=== PATIENT | male | born 1970 | race Caucasian/White ===

== ENCOUNTER 2020-01-02 13:36 | Outpatient (CLI) | payer OTHER, SELFPAY ==
--- NOTE | 2020-01-02 13:44 | XR_ITS ---
WS: [id number] Chest 2 views, 01/02/2020 Clinical Data: REGULATED PROGRAM MONITORING Comparison: PA and lateral chest, 01/02/2019. Findings: No nodules, masses or effusions are seen. The heart is normal. The pulmonary vascularity is not increased. No pneumonia or pneumothorax is seen. XR/XR chest 2V* [id number] Impression: Negative chest.
== END 2020-01-02 13:37 | disposition home or self-care (01) ==
PROVIDERS: Visit Provider Preventive Medicine Occupational Medicine
DX: Z13.6 Encounter for screening for cardiovascular disorders (principal)
CPT/HCPCS: 71046

== ENCOUNTER 2020-01-31 09:06 | Emergency (ER) | payer SELFPAY ==
[2020-01-31 09:16] VITALS: BP 143/91; PULSE 82; RESP 20; TEMP 36.8; O2SAT 97; BMI 33.7
--- NOTE | 2020-01-31 09:26 | XR_ITS ---
WS: [id number] Portable AP upright chest, 01/31/2020 Clinical Data: cp Comparison: PA and lateral chest, 01/02/2020. Findings: No nodules, masses or effusions are seen. The heart is normal. The pulmonary vascularity is not increased. No pneumonia or pneumothorax is seen. Monitor leads on the chest wall. XR/XR chest 1V portable [id number] Impression: Negative chest.
--- NOTE | 2020-01-31 09:26 | ECG_ITS ---
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 Measurements Intervals [place] Rate: 82 P: 31 SC: 130 QRS: -2 QRSD: 86 T: 44 QT: 340 QTc: 398 Interpretive Statements SINUS RHYTHM POSSIBLE RIGHT VENTRICULAR CONDUCTION DELAY [RSR (QR) IN V1/V2] Compared to ECG 07/14/2015 09:57:43 No significant changes Electronically Signed On 01-31-2020 13:28:53 CDT by Gerard Messina M.D. [id number]
--- NOTE | 2020-01-31 09:31 | ED_ITS ---
HPI - Chest Pain General: Chief Complaint: Chest Pain Stated Complaint: CP Time Seen by Provider: 01/31/20 09:17 History of Present Illness: HPI narrative: Patient arise with the complaints of sharp pain in his chest earlier this morning. Says he has no cardiac history. Said he has had pain off and on his chest the last few days. Denies any exertional dyspnea denies any pressure in his chest diaphoresis or nausea and vomiting. Said his arms felt heavy today while he is at work. Said the pain in that he had was sharp left lateral chest area MD complaint: chest pain Onset (ago): day(s) Timing of current episode: episodic Prior episodes: Yes Onset: during exertion Pain location: left chest and lateral Severity: mild Quality: sharp Relieving factors: nothing Exacerbating factors: nothing Associated symptoms: Reports no associated symptoms; Deny abdominal pain, dyspnea, fever(s), nausea or vomiting Review of Systems Const: Denies: fever(s), chills or body aches Eyes: Denies: change in vision or blurry vision ENMT: Denies: throat pain or nasal congestion Card: Reports: chest pain; Denies: dyspnea on exertion Resp: Denies: dyspnea, productive cough or non-productive cough GI: Denies: abdominal pain, nausea or vomiting : Denies: difficulty urinating Musc: Denies: extremity pain Skin/Breast: Denies: rash Neuro: Denies: headache(s) Psych: Denies: anxiety or depression Farzad/Lymph: Denies: easy bruising Physical Exam Narrative: EXAM NARRATIVE: Obese Const: COMMON NORMALS: no acute distress, average body habitus and patient oriented x3 HENMT: COMMON NORMALS: normocephalic HEAD & SCALP: normal to inspection and normocephalic FACE & SINUS: normal facial exam Eye: COMMON NORMALS: conjunctivae normal GENERAL EYE: appearance normal, both eyes and all related structures CONJUNCTIVA: Yes conjunctivae normal Neck/C-Spine: COMMON NORMALS: no JVD Chest: COMMONS NORMALS: normal inspection of the chest Resp: COMMON NORMALS: normal respiratory effort and clear to auscultation bilaterally AUSCULTATION: clear to auscultation bilaterally Cardio: COMMON NORMALS: no JVD, regular rate and regular rhythm RATE: regular rate RHYTHM: regular rhythm GI: COMMON NORMALS: Normal to inspection, nondistended, normoactive bowel sounds present Extremity: COMMON NORMALS: normal to inspection and full ROM Neuro: COMMON NORMALS: patient oriented x3 Course Vital Signs: Vital signs: Vital Signs Temperature 98.3 F 01/31/20 09:16 Pulse Rate 82 01/31/20 09:16 Respiratory Rate 20 H 01/31/20 09:16 Blood Pressure 143/91 01/31/20 09:16 Pulse Oximetry 97 01/31/20 09:16 Coding Level of Care Code ED Marketing Information Analyst for Mandi Rondon
[2020-01-31 09:36] VITALS: BP 126/83; PULSE 59; RESP 20; O2SAT 96
--- NOTE | 2020-01-31 09:40 | PC.NURSE ---
N/V yesterday. WOrks in a factory and sweats daily, which is a normal for him.
[2020-01-31 09:44] LABS: Basophils % 0.4 %; Eosinophils # 0.3 10^3/uL (0.0-0.8); Eosinophils % 2.5 %; Hematocrit 40.3 % (42.0-52.0); Lymphocytes # 2.6 10^3/uL (0.8-4.8); Lymphocytes % 24.3 %; Mean Corpuscular HGB Conc 32.3 g/dL (30.0-36.0); Mean Corpuscular Volume 89.8 fL (80-94); Mean Platelet Volume 9.9 fL (7.4-10.4); Monocytes # 0.8 10^3/uL (0.2-0.9); Monocytes % 7.5 %; Neutrophils % 64.4 %; Nucleated Red Blood Cells % 0 %; Platelet Count 251 10^3/cmm (130-400); Red Blood Count 4.49 10^6/uL (4.1-5.3); Red Cell Distribution Width 13.6 % (12.1-15.1); White Blood Count 10.7 10^3/uL (4.0-10.0)
[2020-01-31 10:02] LABS: Alanine Aminotransferase 18 U/L (0-41); Albumin Level 3.9 g/dL (3.5-5.2); Alkaline Phosphatase 98 IU/L (40-130); Anion Gap 14.2 (5-19); Aspartate Amino Transferase 15 U/L (0-40); Blood Urea Nitrogen 17 mg/dL (6-20); Calcium 9.7 mg/dL (8.5-10.5); Carbon Dioxide 24 mmol/L (22-29); Chloride 104 mmol/L (98-107); Globulin 3.1 g/dL (1.3-4.6); Glomerular Filtration Rate 71.8 mL/min (90-130); Glucose 105 mg/dL (65-115); Osmolality Calculated 283 mOsm/kg (285-295); Potassium 4.2 mmol/L (3.5-5.1); Sodium 138 mmol/L (136-145); Total Bilirubin 0.2 mg/dL (0.15-1.2)
[2020-01-31 10:03] LABS: Troponin(5th) Baseline 6 ng/L (0-15)
[2020-01-31] MEDS: ondansetron 2 mg/ML SDV 2 mL 4 MG IVP (10:03)
[2020-01-31] MEDS: ketorolac 30 mg/mL INJ IVP (10:03)
[2020-01-31] MEDS: sodium chloride 0.9% 1,000 ML 999 ML IV (10:03)
[2020-01-31 11:25] VITALS: BP 122/79; PULSE 77; RESP 18; O2SAT 99
--- NOTE | 2020-01-31 11:26 | ECG_ITS ---
[facility] Test Date: 2020-01-31 Pat Name: Dillon Peterson Department: Room: Gender: Male Mask Former: : 1970 Requested By: Jarad Brewer Order Number: [id number] Jennie MD: Gerard Messina M.D. Measurements Intervals [place] Rate: 73 P: 114 [place]: 144 QRS: 18 QRSD: 88 T: 77 QT: 380 QTc: 419 Interpretive Statements SINUS RHYTHM LOW QRS VOLTAGE IN EXTREMITY LEADS [QRS DEFLECTION < 0.5 mV IN LIMB LEADS] POSSIBLE RIGHT VENTRICULAR CONDUCTION DELAY [RSR (QR) IN V1/V2] Compared to ECG 01/31/2020 09:16:10 Low QRS voltage now present Electronically Signed On 01-31-2020 14:09:30 CDT by Gerard Messina M.D. [id number]
[2020-01-31 12:30] LABS: Troponin 5 2HR 6.31 ng/L (0-15); Troponin 5 2HR Delta 0.31 ABS# (0-10)
[2020-01-31 12:49] VITALS: BP 139/88; PULSE 63; RESP 18; O2SAT 99
[2020-01-31 13:14] VITALS: BP 114/61; PULSE 65; RESP 18; TEMP 36.3; O2SAT 97
== END 2020-01-31 13:16 | disposition home or self-care (01) ==
PROVIDERS: Emergency Provider Nurse Practitioner Family
DX: R07.9 Chest pain, unspecified (principal)
CPT/HCPCS: 12345; 71045; 80053; 84484; 85025; 85610; 93005; 93010; 96361; 96374; 96375; 99283; 99284; J1885; J2405; J7030

== ENCOUNTER 2022-06-06 10:37 | Outpatient (CLI) | payer OTHER, SELFPAY ==
--- NOTE | 2022-06-06 10:50 | XR_ITS ---
WS: [id number] Exam: XR chest 2V* [id number] Date/Time of Exam: 06/06/2022 10:52 AM Reason For Exam: REGULATED PROGRAM MONITORING Comparison 01/31/2020. The lungs are clear and fully expanded. Normal cardiomediastinal structures. Bony elements are intact . XR/XR chest 2V* [id number] IMPRESSION: 1. No acute cardiopulmonary process.
== END 2022-06-06 10:38 | disposition home or self-care (01) ==
LOC: RAD 07-26 12:32
PROVIDERS: Visit Provider Preventive Medicine Occupational Medicine
DX: Z13.6 Encounter for screening for cardiovascular disorders (principal)
CPT/HCPCS: 71046

== ENCOUNTER 2023-09-29 12:37 | Outpatient (CLI) | payer OTHER, SELFPAY ==
--- NOTE | 2023-09-29 12:41 | XR_ITS ---
WS: [id number] Left knee, 3 views, 09/29/2023 Clinical Data: CHRONIC PAIN OF BOTH KNEES Comparison: None. Findings: No fractures or dislocations are seen. There is medial joint compartment narrowing with spurring of t he medial and lateral femoral condyles and medial tibial plateau. There are small posterior patellar spurs. The soft tissues are unremarkable. Impression: Minimal osteoarthritis of the left knee. Kellgren-Bryan Classification: grade 2 (minimal): definite osteophytes and possible joint space na rrowing
--- NOTE | 2023-09-29 12:41 | XR_ITS ---
WS: [id number] Right knee, 3 views, 09/29/2023 Clinical Data: CHRONIC PAIN OF BOTH KNEES Comparison: Right knee, 10/16/2012 Findings: No fractures or dislocations are seen. There is medial joint compartment narrowing with spurs of the medial femoral condyle, medial tibial plateau and lateral tibial plateau. The patella is intact with a posterior superior spur.. The soft tissues are unremarkable. Impression: Minimal osteoarthritis of the right knee. Kellgren-Bryan Classification: grade 2 (minimal): definite osteophytes and possible joint space na rrowing
== END 2023-09-29 12:38 | disposition home or self-care (01) ==
LOC: RAD 12:37
PROVIDERS: Visit Provider Nurse Practitioner Family
DX: M25.561 Pain in right knee (principal); M25.562 Pain in left knee; G89.29 Other chronic pain; M17.0 Bilateral primary osteoarthritis of knee
CPT/HCPCS: 73562

== ENCOUNTER 2024-04-14 18:11 | Emergency (ER) | payer OTHER, SELFPAY ==
[2024-04-14 18:16] VITALS: BP 150/90; PULSE 81; RESP 17; TEMP 36.8; O2SAT 94; BMI 33.8
[2024-04-14 18:34] LABS: Glucose Point of Care 546 mg/dL (70-110)
[2024-04-14 18:55] LABS: Basophils # 0.1 10^3/uL (0.0-0.1); Basophils % 0.5 %; Eosinophils # 0.2 10^3/uL (0.0-0.8); Eosinophils % 1.9 %; Hematocrit 37.9 % (37-53); Lymphocytes # 2.5 10^3/uL (0.8-4.8); Mean Corpuscular HGB Conc 34.6 g/dL (30-55); Mean Corpuscular Volume 83.8 fl (82-101); Mean Platelet Volume 10.5 fL (7.4-10.4); Monocytes # 0.7 10^3/uL (0.2-0.9); Monocytes % 6.8 %; Neutrophils # 7.34 10^3/uL (1.8-7.7); Neutrophils % 67.4 %; Nucleated Red Blood Cells % 0 %; Platelet Count 229 10^3/cmm (157-399); Red Blood Count 4.52 10^6/uL (3.85-5.65); Red Cell Distribution Width 12.9 % (12.1-15.1); White Blood Count 10.89 10^3/uL (3.29-11.43)
--- NOTE | 2024-04-14 18:57 | ED_ITS ---
HPI - General Adult 2 General: Chief complaint: General Medical Stated complaint: High blood sugar sent by Time Seen by Provider: 04/14/24 18:20 History of Present Illness: 53-year-old male patient without a signi ficant past medical history. He presents because he has had symptoms for the last few days of generalized blurry vision, frequent urination, dry mouth, polydipsia etc. He was found in urgent care to have a blood sugar in the 430s, and sent here. He has not been vomiting. No fever. No recent illness. Related Data Home Medications Medication Instructions Recorded Confirmed simvastatin 20 mg tablet mg PO 07/07/23 07/07/23 Previous Rx's Medication Instructions Recorded azithromycin 500 mg tablet 500 mg PO DAILY 5 days #5 tabs 07/07/23 (Zithromax) blood-glucose meter #1 ea 04/14/24 glipizide 10 mg tablet 10 mg PO DAILY #30 tabs 04/14/24 metformin 500 mg tablet 500 mg PO BID #60 tabs 04/14/24 Allergies Allergy/AdvReac Type Severity Reaction Status Date / Time No Known Allergies Allergy Verified 07/07/23 14:32 Physical Exam 2 Const: COMMON NORMALS: no acute distress GENERAL APPEARANCE: cooperative; not ill appearing and not frail appearing HENMT: COMMON NORMALS: normocephalic, atraumatic and Normal external nose present HEAD & SCALP: normocephalic and atraumatic FACE & SINUS: normal facial exam and face symmetric NOSE: Normal external nose present Eye: COMMON NORMALS: Equal, round and reactive pupils present and EOMs intact bilaterally PUPIL: Yes Equal, round and reactive pupils present Neck/C-Spine: GENERAL: Yes trachea midline Chest: CHEST: Yes Symmetrical chest wall rise Resp: COMMON NORMALS: normal respiratory effort, No retractions, No use of accessory muscles and clear to auscultation bilaterally AUSCULTATION: clear to auscultation bilaterally Cardio: COMMON NORMALS: regular rate and regular rhythm RATE: regular rate RHYTHM: regular rhythm GI: COMMON NORMALS: Normal to inspection, nondistended, normoactive bowel sounds present Extremity: COMMON NORMALS: no pedal edema Neuro: SHELLY COMA SCALE: document GCS findings [place] coma scale eye opening: Spontaneous Shelly coma scale verbal response: Orientated [place] coma scale motor response: Obey commands [place] coma scale total score: 15 S ENSORY EXAM: Yes extremities (intact) Psych: COMMON NORMALS: speech normal SPEECH: Yes normal speech Skin: COMMON NORMALS: no rashes or lesions noted GENERAL SKIN EXAM: no rashes or lesions noted Course 2 Vital Signs: Vital signs: Vital Signs Temperature 98.2 F 04/14/24 18:16 Pulse Rate 89 04/14/24 21:14 Respiratory Rate 18 04/14/24 21:14 Blood Pressure 138/86 04/14/24 21:14 Pulse Oximetry 97 04/14/24 21:14 Oxygen Delivery Me thod Room Air 04/14/24 18:16 MDM - General Adult Medical Decision Making The patient is not tachycardic. He does have a blood sugar of 500 here, but does not appear unwell. Laboratory reveals a sugar of 523, pseudohyponatremia of 125. Potassium is normal. He is given 10 units of insulin here and a liter of fluid, sugars down in the 300s now. Urinalysis is essentially not remarkable. Lipase is normal. His hemoglobin A1c is 11% did noting he has been hyperglycemic for quite some time. He will be started on metformin as an outpatient as well as glipizide. Close outpatient follow-up. Lab Data 04/14/24 18:47 04/14/24 18:47 Laboratory Results WBC 10.89 10^3/uL (3.29-11.43) 04/14/24 18:47 RBC 4.52 10^6/uL (3.85-5.65) 04/14/24 18:47 Hgb 13.10 g/dL (11.27-16.99) 04/14/24 18:47 Hct 37.9 % (37-53) 04/14/24 18:47 MCV 83.8 fl (82-101) 04/14/24 18:47 MCH 29.0 pg (27-33) 04/14/24 18:47 MCHC 34.6 g/dL (30-55) 04/14/24 18:47 RDW 12.9 % (12.1-15.1) 04/14/24 18:47 Plt Count 229 10^3/cmm (157-399) 04/14/24 18:47 MPV 10.5 fL (7.4-10.4) H 04/14/24 18:47 Neut % (Auto) 67.4 % 04/14/24 18:47 Lymph % (Auto) 23.0 % 04/14/24 18:47 [place] % (Auto) 6.8 % 04/14/24 18:47 Eos % (Auto) 1.9 % 04/14/24 18:47 Baso % (Auto) 0.5 % 04/14/24 18:47 Neut # (Auto) 7.34 10^3/uL (1.8-7.7) 04/14/24 18:47 Lymph # (Auto) 2.5 10^3/uL (0.8-4.8) 04/14/24 18:47 [place] # (Auto) 0.7 10^3/uL (0.2-0.9) 04/14/24 18:47 Eos # (Auto) 0.2 10^3/uL (0.0-0.8) 04/14/24 18:47 Baso # (Auto) 0.1 10^3/uL (0.0-0.1) 04/14/24 18:47 Nucleated RBC % (auto) 0 % 04/14/24 18:47 Nucleated RBCs # 0.0 /100WBC 04/14/24 18:47 Sodium 125 mmol/L (136-145) L 04/14/24 18:47 Potassium 4.2 mmol/L (3.5-5.1) 04/14/24 18:47 Chloride 92 mmol/L (98-107) L 04/14/24 18:47 Carbon Dioxide 24 mmol/L (22-29) 04/14/24 18:47 Anion Gap 13.2 (5-19) 04/14/24 18:47 BUN 15 mg/dL (6-20) 04/14/24 18:47 Creatinine 1.0 mg/dL (0.7-1.2) 04/14/24 18:47 GFR Calculation 78.8 mL/min (90-130) L 04/14/24 18:47 Glucose 523 mg/dL (65-115) H* 04/14/24 18:47 POC Glucose 309 mg/dL (70-110) H 04/14/24 20:39 Estimat Average Glucose 269 04/14/24 18:47 Hemoglobin A1c 11.0 % (4.0-6.0) H 04/14/24 18:47 Calculated Osmolality 284 mOsm/kg (285-295) L 04/14/24 18:47 Calcium 8.9 mg/dL (8.5-10.5) 04/14/24 18:47 Magnesium 1.9 mg/dL (1.7-2.3) 04/14/24 18:47 Total Bilirubin 0.4 mg/dL (0.15-1.2) 04/14/24 18:47 AST 13 U/L (0-40) 04/14/24 18:47 ALT 20 U/L (0-41) 04/14/24 18:47 Alkaline Phosphatase 119 U/L (40-130) 04/14/24 18:47 Total Protein 7.0 g/dL (6.6-8.7) 04/14/24 18:47 Albumin 3.6 g/dL (3.5-5.2) 04/14/24 18:47 Globulin 3.4 g/dL (1.3-4.6) 04/14/24 18:47 Lipase 42 U/L (13-60) 04/14/24 18:47 TSH 1.45 uIU/mL (0.27-4.20) 04/14/24 18:47 Urine Color Yellow (Yellow) 04/14/24 19:41 Urine Appearance Clear (CLEAR) 04/14/24 19:41 Urine pH 6.5 (5-7) 04/14/24 19:41 Ur Specific [place] 1.039 (1.005-1.030) H 04/14/24 19:41 Urine Protein Negative (Negative) 04/14/24 19:41 Urine Glucose (UA) 2+ (Normal) H 04/14/24 19:41 Urine Ketones Negative (Negative) 04/14/24 19:41 Urine Blood Negative (Negative) 04/14/24 19:41 Urine Nitrate Negative (Negative) 04/14/24 19:41 Urine Bilirubin Negative (Negative) 04/14/24 19:41 Urine Urobilinogen 0.2 mg/dL (Negative) 04/14/24 19:41 Ur Leukocyte Esterase Negative (Negative) 04/14/24 19:41 Urine RBC 0-4 /hpf (0-2) H 04/14/24 19:41 Urine WBC 5-10 /hpf (0-5) H 04/14/24 19:41 Ur Squamous Epith Cells 0-4 /hpf (0-5) H 04/14/24 19:41 Amorphous Sediment Not Reportable 04/14/24 19:41 Urine Bacteria Trace /hpf (NONE) 04/14/24 19:41 Serum Ketones Negative (Negative) 04/14/24 18:47 No radiology studies performed this visit Discharge Plan Discharge Patient Disposition: Home Clinical Impression: Type 2 diabetes mellitus Condition: Stable Prescriptions: New metformin 500 mg tablet 500 mg PO BID Qty: 60 0RF glipizide 10 mg tablet 10 mg PO DAILY Qty: 30 0RF (DME) blood-glucose meter Kit See Rx Instructions .Route Qty: 1 0RF Rx Instructions: As directed No Action simvastatin 20 mg tablet PO azithromycin [Zithromax] 500 mg tablet 500 mg PO DAILY 5 Days Qty: 5 0RF Discharge Orders: Discharge ED (Routine); Ordered 04/14/24 Ordered By: Abhilash Lorenzo Referrals: Jada Paniagua DO [Primary Care Provider] - 1-3 days Patient Instructions: Diabetes and Nutrition (ED), Diabetes and Exercise (ED), Type 2 Diabetes Management for Adults (ED), Opioid Safety, Pain Management Activity Restrictions/Additional Instructions: Medication as directed. You will need to obtain a glucometer, test strips, and supplies to be able to check your blood sugar. Check fasting glucoses in the morning, and when you are symptomatic. Call your doctor in the morning for follow-up. They will want to see you. Coding Level of Care Code ED Machine Inspector for Mandi Rondon
[2024-04-14 19:11] LABS: Ketone (Acetest) Serum Negative (Negative)
[2024-04-14 19:21] LABS: Estmated Average Glucose 269
[2024-04-14 19:26] LABS: Alanine Aminotransferase 20 U/L (0-41); Albumin Level 3.6 g/dL (3.5-5.2); Alkaline Phosphatase 119 U/L (40-130); Anion Gap 13.2 (5-19); Aspartate Amino Transferase 13 U/L (0-40); Blood Urea Nitrogen 15 mg/dL (6-20); Calcium 8.9 mg/dL (8.5-10.5); Carbon Dioxide 24 mmol/L (22-29); Chloride 92 mmol/L (98-107); Creatinine Clr Calc Pharmacy 126.7256; Globulin 3.4 g/dL (1.3-4.6); Glomerular Filtration Rate 78.8 mL/min (90-130); Lipase 42 U/L (13-60); Magnesium 1.9 mg/dL (1.7-2.3); Osmolality Calculated 284 mOsm/kg (285-295); Potassium 4.2 mmol/L (3.5-5.1); Sodium 125 mmol/L (136-145); Thyroid Stimulating Hormone 1.45 uIU/mL (0.27-4.20); Total Bilirubin 0.4 mg/dL (0.15-1.2)
[2024-04-14 19:31] LABS: Glucose 523 mg/dL (65-115)
[2024-04-14] MEDS: sodium chloride 0.9% 1,000 ML 999 ML IV (19:42)
[2024-04-14] MEDS: insulin regular-human 100 units/1 mL 10 UNIT IVP (19:43)
[2024-04-14 19:53] LABS: Bilirubin Urine Negative (Negative); Blood Urine Negative (Negative); Glucose Urine UA 2+ (Normal); Ketones Urine Negative (Negative); Leukocyte Esterase Urine Negative (Negative); Nitrate Urine Negative (Negative); Protein Urine Negative (Negative); Urine Appearance Clear (CLEAR); Urine Color Yellow (Yellow); Urobilinogen Urine 0.2 mg/dL (Negative); pH Urine 6.5 (5-7)
[2024-04-14 19:58] LABS: Specific Gravity, Urine 1.039 (1.005-1.030)
[2024-04-14 19:59] LABS: Add Urine Microscopic? YES; Bacteria Urine TRACE /hpf; RBC Urine 0-4 /hpf (0-2); Squamous Epithelial Cell Urine 0-4 /hpf (0-5); UA Manual Slide Review YES
[2024-04-14 20:44] LABS: Glucose Point of Care 309 mg/dL (70-110)
[2024-04-14 21:14] VITALS: BP 138/86; PULSE 89; RESP 18; O2SAT 97
== END 2024-04-14 21:14 | disposition home or self-care (01) ==
PROVIDERS: Emergency Provider Emergency Medicine; PCP Family Medicine
DX: E11.65 Type 2 diabetes mellitus with hyperglycemia (principal)
CPT/HCPCS: 36415; 36416; 80053; 81001; 82009; 82962; 83036; 83690; 83735; 84443; 85025; 96361; 96374; 99284; J1815; J7030

== ENCOUNTER 2024-05-10 11:38 | Outpatient (CLI) | payer OTHER, SELFPAY ==
--- NOTE | 2024-05-10 11:43 | MR_ITS ---
WS: [id number] MRI RIGHT KNEE HISTORY: ARTHRITIS OF BOTH KNEES COMPARISON: 09/29/2023 Anterior cruciate ligament: Mild thickening and heterogeneity but no tear. Posterior cruciate ligament: Intact. Medial collateral ligament: MCL is being displaced from the joint line by osteophytes and disc extrus ion. Partial tear of the deep MCL. There is fluid surrounding portions of the MCL. Posterior lateral corner structures: Intact. Medial menisci: Abnormal signal extends to the inferior articular surface of the posterior horn consi stent with a meniscal tear. Anterior horn is intact. Lateral meniscus: Intact. Normal signal, size and shape. Extensor mechanism: Distal quadriceps tendon and patellar tendons are intact. Fluid and soft tissue: Moderate-sized suprapatellar joint effusion. Moderate-sized Levi's cyst. Mild edema along the lateral knee. Osseous and articular structures: Patellofemoral compartment: Mild chondromalacia at the patellar eminence and over the medial facet. N o marrow edema. Very slight lateral subluxation of the patella. Medial compartment: Moderate narrowing the medial compartment. There is bone upon bone with loss of c artilage along the femoral condyle and tibial plateau. Reactive marrow edema in the femoral condyle a nd tibial plateau with marginal osteophytes. Lateral compartment: Moderate narrowing of the lateral compartment with mild chondromalacia. No marro w edema. MR/MR knee RT wo con* [id number] IMPRESSION: 1. Partial tear of the deep MCL with surrounding fluid. MCL is being displaced from the joint by extruded meniscus and osteophytes. 2. Horizontal tear posterior horn medial meniscus extending to the inferior ar ticular surface. 3. Moderate size suprapatellar joint effusion and Levi's cyst. 4. Medial compartment: Moderate narrowing the medial compartment with loss of cartilage and marrow edema. Osteophytes displacing the MCL from the medial join t line. 5. Lateral compartment: Moderate narrowing with mild diffuse chondromalacia. 6. Mild chondromalacia at the patellar eminence and medial facet
== END 2024-05-10 11:39 | disposition home or self-care (01) ==
LOC: RAD 11:38
PROVIDERS: PCP Family Medicine; Visit Provider Nurse Practitioner Family
DX: M17.0 Bilateral primary osteoarthritis of knee (principal); S83.411A Sprain of medial collateral ligament of right knee, initial encounter; M23.221 Derangement of posterior horn of medial meniscus due to old tear or injury, right knee; M25.461 Effusion, right knee; M71.21 Synovial cyst of popliteal space [Baker], right knee; M25.761 Osteophyte, right knee; X58.XXXA Exposure to other specified factors, initial encounter
CPT/HCPCS: 73721

== ENCOUNTER → 2024-06-06 13:04 | Outpatient (BNVA) | payer OTHER, SELFPAY | PROVIDERS: PCP Family Medicine; Visit Provider Nurse Practitioner | DX: M25.561 Pain in right knee (principal); S83.241A Other tear of medial meniscus, current injury, right knee, initial encounter; S83.411A Sprain of medial collateral ligament of right knee, initial encounter; M17.11 Unilateral primary osteoarthritis, right knee; M22.41 Chondromalacia patellae, right knee; G89.29 Other chronic pain; X58.XXXA Exposure to other specified factors, initial encounter | CPT/HCPCS: 73560; 73565 ==

== ENCOUNTER 2025-04-25 13:15 | Outpatient (CLI) | payer OTHER, SELFPAY ==
--- NOTE | 2025-04-25 13:34 | XRR_ITS ---
PROCEDURE INFORMATION: Exam: XR Left Foot Exam date and time: 04/25/2025 1:40 PM Age: 54 years old Clinical indication: Pain; Foot; Left; Additional info: Foot pain TECHNIQUE: Imaging protocol: Radiologic exam of the left foot. Views: 3 or more views. COMPARISON: CR XR knee LT 3V* [id number] 09/29/2023 12:59 PM FINDINGS: Bones/joints: Achilles and plantar calcaneal bone spurs. No fracture or dislocation. Soft tissues: Normal. XR/XR foot LT min 3V* [id number] IMPRESSION: No acute findings.
--- NOTE | 2025-04-25 13:34 | XRR_ITS ---
PROCEDURE INFORMATION: Exam: XR Right Foot Exam date and time: 04/25/2025 1:40 PM Age: 54 years old Clinical indication: Pain; Foot; Right; Additional info: Foot pain TECHNIQUE: Imaging protocol: Radiologic exam of the right foot. Views: 3 or more views. COMPARISON: CR XR knees AP WB w RT lmt ORTH 06/06/2024 1:16 PM FINDINGS: Bones/joints: Normal. Soft tissues: Normal. XR/XR foot RT min 3V* [id number] IMPRESSION: No acute findings.
== END 2025-04-25 13:16 | disposition home or self-care (01) ==
PROVIDERS: PCP Family Medicine; Visit Provider Nurse Practitioner Family
DX: M79.671 Pain in right foot (principal); M79.672 Pain in left foot
CPT/HCPCS: 73630